=== PATIENT | female | born 1940 | race Caucasian/White ===

== ENCOUNTER 2018-03-04 10:02 | Inpatient (IN) | payer OTHER ==
--- NOTE | 2018-03-04 10:29 | PDOC ---
History of Present Illness - General Chief Complaint: Wound Stated Complaint: SENT BY PCP,WOUND INFECTION Time Seen by Provider: 03/04/18 10:20 History Source: Patient Exam Limitations: No Limitations - History of Present Illness Initial Comments: 03/04/18 11:52 Patient is a 77-year-old female past medical history of osteopenia, left total knee replacement, who presents to the emergency department today complaining of left leg pain, swelling, and rednes. Patient states that she was bit by a dog approximately 1 week ago. She was treated at a local urgent care. She was placed on Augmentin and her tetanus shot was updated. Patient states that the dog that bit her had all its vaccinations so rabies vaccinations were not started at that time. Patient states that until yesterday everything had been healing well. She states that now she's got redness, ankle swelling and streaking up and down her left leg. Denies losing or drainage from the bite site. No stitches in place. Denies fevers, chills, nausea, vomiting, diarrhea, numbness and tingling to the extremity, weakness to the extremity. Past History - Travel Traveled outside of the country in the last 30 days: No Close contact w/someone who was outside of country & ill: No - Past Medical History Allergies/Adverse Reactions: Allergies Allergy/AdvReac Type Severity Reaction Status Date / Time Sulfa (Sulfonamide Allergy Verified 03/04/18 10:12 Antibiotics) COPD: No - Suicide/Smoking/Psychosocial Hx Smoking History: Never smoked Review of Systems - Review of Systems Able to Perform ROS?: Yes Comments:: 03/04/18 13:06 CONSTITUTIONAL: Absent: fever, chills, diaphoresis, generalized weakness, malaise, loss of appetite HEENT: Absent: rhinorrhea, nasal congestion, throat pain, throat swelling, difficulty swallowing, mouth swelling, ear pain, eye pain, visual Changes CARDIOVASCULAR: Absent: chest pain, loss of consciousness, palpitations, irregular heart rate, peripheral edema RESPIRATORY: Absent: cough, shortness of breath, dyspnea with exertion, orthopnea, wheezing, stridor, hemoptysis GASTROINTESTINAL: Absent: abdominal pain, abdominal distension, nausea, vomiting, diarrhea, constipation, melena, hematochezia GENITOURINARY: Absent: dysuria, frequency, urgency, hesitancy, hematuria, flank pain, genital pain MUSCULOSKELETAL: Absent: myalgia, arthralgia, joint swelling SKIN: Present: cellulitis/skin infection to L leg. Absent: rash, itching, pallor HEMATOLOGIC/IMMUNOLOGIC: Absent: easy bleeding, easy bruising, lymphadenopathy, frequent infections ENDOCRINE: Absent: unexplained weight gain, unexplained weight loss, heat intolerance, cold intolerance NEUROLOGIC: Absent: headache, focal weakness or paresthesias, dizziness, unsteady gait, seizure, mental status changes, bladder or bowel incontinence PSYCHIATRIC: Absent: anxiety, depression, suicidal or homicidal ideation, hallucinations. Is the patient limited Bahamian proficient: No *Physical Exam - Vital Signs Last Vital Signs Temp Pulse Resp BP Pulse Ox 98 F 87 18 132/65 99 03/04/18 10:04 03/04/18 10:04 03/04/18 10:04 03/04/18 10:04 03/04/18 10:04 - Physical Exam Comments: 03/04/18 13:07 GENERAL: Well developed, well nourished. Awake and alert. No acute distress. HEENT: Normocephalic, atraumatic. PERRLA, EOMI. No conjunctival pallor. Sclera are non- icteric. Moist mucous membranes. Oropharynx is clear. NECK: Supple. Full ROM. No JVD. Carotid pulses 2+ and symmetric, without bruits. No thyromegaly. No lymphadenopathy. CARDIOVASCULAR: Regular rate and rhythm. No murmurs, rubs, or gallops. Distal pulses are 2+ and symmetric. PULMONARY: No evidence of respiratory distress. Lungs clear to auscultation bilaterally. No wheezing, rales or rhonchi. ABDOMINAL: Soft. Non-tender. Non-distended. No rebound or guarding. No organomegaly. Normoactive bowel sounds. MUSCULOSKELETAL Normal range of motion at all joints. No bony deformities or tenderness. No CVA tenderness. EXTREMITIES: No cyanosis. No clubbing. No edema. No calf tenderness. SKIN: LLE with bite barlow to the lateral calf. 2cm of surrounding erythema with blister formation towards the distal end of the bite. Streaking and swelling down to the ankle. Streaking up to the L knee without swelling to the knee joint. Warm and dry. No jaundice. NEUROLOGICAL: Alert, awake, appropriate. Cranial nerves 2-12 intact. No deficits to light touch and temperature in face, upper extremities and lower extremities. No motor deficits in the in face, upper extremities and lower extremities. Normoreflexic in the upper and lower extremities. Normal speech. Toes are down- going bilaterally. Gait is normal without ataxia. PSYCHIATRIC: Cooperative. Good eye contact. Appropriate mood and affect. ED Treatment Course - LABORATORY CBC & Chemistry Diagram: 03/04/18 12:05 03/04/18 12:05 Medical Decision Making - Medical Decision Making 03/04/18 13:25 Patient is a 77-year-old female who presents to the emergency department for cellulitis to her left lower extremity from a dog bite. Patient failed outpatient antibiotics (Augmentin). Patient now with increased erythema and warmth to the left lower extremity. No active drainage at this time. Shrieking down to the left ankle and up to the left knee. Given failure of PO antibiotics , will need to bring patient in for IV antibiotics. Dr. Garcia consult the patient at bedside and agrees with IV antibiotics, vanco and Zosyn, admission labs, lower externally ultrasound and x-ray. We'll reevaluate the patient. 03/04/18 16:45 Lab work shows no leukocytosis, zosyn started. Patient pending DVT study and x- ray. Pt. was endorsed to [facility] who accepts the admission to med/surg for IV abx. EKG: RAte 70 bpm, R superior axis deviation. Normal intervals. Sinus Rhythm. No acute ST-T wave changes. *DC/Admit/Observation/Transfer Diagnosis at time of Disposition: Allergy to sulfa drugs Cellulitis Qualifiers: Site of cellulitis: extremity Site of cellulitis of extremity: lower extremity Laterality: left Qualified Code(s): L03.116 - Cellulitis of left lower limb Dog bite of left calf Qualifiers: Encounter type: initial encounter Qualified Code(s): S81.852A - Open bite, left lower leg, initial encounter - Discharge Dispostion Condition at time of disposition: Stable Decision to Admit order: Yes - Referrals - Patient Instructions - Post Discharge Activity
[2018-03-04] MEDS ORDERED: PIPERACILLIN/TAZOB 3.375 GM 3.375 GM in DEXTROSE 5%-WATER - 50 ML IVPB ONE (11:17)
[2018-03-04] MEDS ORDERED: VANCOMYCIN 1,000 MG in DEXTROSE 5%-WATER - 250 ML IVPB ONE (11:17)
[2018-03-04] MEDS ORDERED: PANTOPRAZOLE 40 MG TABLET (FP) ONE (11:22)
[2018-03-04] MEDS ORDERED: FUROSEMIDE 40 MG TABLET (FP) ONE (11:22)
--- NOTE | 2018-03-04 11:42 | CON.ID ---
Consult Consult Specialty:: infectious disease Referred by:: ED - History of Present Illness Chief Complaint: worsening erythema and swelling LLE History of Present Illness: 77 yo female s/p bilateral TKR sevral years ago, bitten by dog last Monday through her jeans- seen at [facility] dog LAD on vaccines she received tetanus vaccine, wound was cleaned and she was started on augmentin she did well for first sevral days and then over last 2 to 3 days she had increaseing erythema extending proximallly toward the knee over last 48hours she has ankle swelling as well no fevers or chills no pets at home no water exposure - History Source History Provided By: Patient Limitations to Obtaining History: No Limitations - Past Medical History Infectious Disease: Yes: Other (cellulitis once several years ago) Endocrine: Yes: Other (osteoporosis) - Past Surgical History Past Surgical History: Yes: Joint Replacement (bilateral TKR, partial hip replacement) - Smoking History Smoking history: Never smoked - Social History Usual Living Arrangement: With Spouse ADL: Independent Home Medications - Allergies Allergies/Adverse Reactions: Allergies Allergy/AdvReac Type Severity Reaction Status Date / Time Sulfa (Sulfonamide Allergy Verified 03/04/18 10:12 Antibiotics) Review of Systems - Review of Systems Constitutional: reports: No Symptoms. denies: Chills, Fever Eyes: reports: No Symptoms HENT: reports: No Symptoms Neck: reports: No Symptoms Cardiovascular: reports: No Symptoms Respiratory: reports: No Symptoms Gastrointestinal: reports: No Symptoms Genitourinary: reports: No Symptoms Breasts: reports: No Symptoms Reported Integumentary: reports: No Symptoms Physical Exam Vital Signs: Vital Signs Temperature 98 F 03/04/18 10:04 Pulse Rate 87 03/04/18 10:04 Respiratory Rate 18 03/04/18 10:04 Blood Pressure 132/65 03/04/18 10:04 O2 Sat by Pulse Oximetry (%) 99 03/04/18 10:04 Constitutional: Yes: Well Nourished, No Distress, Calm, Thin Eyes: Yes: Conjunctiva Clear, EOM Intact HENT: Yes: Atraumatic, Normocephalic Neck: Yes: Supple, Trachea Midline Cardiovascular: Yes: Regular Rate and Rhythm Respiratory: Yes: Regular, CTA Bilaterally Gastrointestinal: Yes: Normal Bowel Sounds, Soft. No: Tenderness ...Rectal Exam: Yes: Deferred Extremities: Yes: Other (left calf with open bite wound with erythema up to knee and to ankle +foot and ankle swellling +puncture wounds, area of ?early blister) Peripheral Pulses WNL: Yes Neurological: Yes: Alert, Oriented Labs: pending Imaging - Results Chest X-ray: Pending X-ray: Pending Ultrasound: Pending Problem List - Problems (1) Cellulitis Code(s): L03.90 - CELLULITIS, UNSPECIFIED (2) Dog bite of left calf Code(s): S81.852A - OPEN BITE, LEFT LOWER LEG, INITIAL ENCOUNTER; W54.0XXA - BITTEN BY DOG, INITIAL ENCOUNTER (3) Allergy to sulfa drugs Code(s): Z88.2 - ALLERGY STATUS TO SULFONAMIDES STATUS Assessment/Plan s/p dog bite one week ago initial improvement, then swelling and erythema ?secondary cellulitis ?early abscess r/o dvt labs cultures duplex xray calf vanco/zosyn- has been on augmentin for one week may need surgery to see-
[2018-03-04 12:20] LABS: BASO % 0.9 % (0-2.0); HEMOGLOBIN 13.2 GM/dL (10.7-15.3); LYMPH % 15.9 % (8-40); MCH 32.6 pg (25.7-33.7); MCHC 33.8 g/dl (32.0-36.0); MEAN CELL VOLUME 96.2 fl (80-96); MEAN PLT VOLUME 8.4 fl (7.5-11.1); MONO % 8.8 % (3.8-10.2); NEUT % 71.4 % (42.8-82.8); PLATELET COUNT 232 K/MM3 (134-434); RBC 4.06 M/mm3 (3.60-5.2); RDW 13.3 % (11.6-15.6); WHITE BLOOD COUNT 8.3 K/mm3 (4.0-10.0)
[2018-03-04 12:33] LABS: INR 1.04 (0.82-1.09); PROTHROMBIN TIME (PATIENT) 11.8 SEC (9.7-13.0)
[2018-03-04 12:48] LABS: ALBUMIN 3.5 g/dl (3.4-5.0); ANION GAP 4 (8-16); BLOOD UREA NITROGEN 20 mg/dL (7-18); CALCIUM 8.9 mg/dL (8.5-10.1); CHLORIDE 103 mmol/L (98-107); CO2 30 mmol/L (21-32); GLUCOSE,RANDOM 92 mg/dL (74-106); SODIUM 137 mmol/L (136-145)
[2018-03-04 13:00] LABS: ALK PHOS 73 U/L (45-117); BILIRUBIN,TOTAL 0.6 mg/dL (0.2-1.0); CREATININE 0.9 mg/dL (0.55-1.02); SGPT/ALT 32 U/L (12-78); TOT PROT 7.3 g/dl (6.4-8.2)
[2018-03-04 13:14] LABS: POTASSIUM 5.5 mmol/L (3.5-5.1); SGOT/AST 59 U/L (15-37)
[2018-03-04] MEDS ORDERED: PIPERACILLIN/TAZOB 3.375 GM 3.375 GM/50 ML BAG IVPB ONE ×2 (13:49→18:42)
[2018-03-04] MEDS ORDERED: VANCOMYCIN 1 GRAM (PRE-DOCKED) 1,000 MG/250 ML BAG IVPB ONE (15:33)
[2018-03-04 16:04] LABS: URINE APPEARANCE CLEAR; URINE BILIRUBIN NEGATIVE (<2.0 mg/dL); URINE COLOR YELLOW; URINE GLUCOSE (UA) NEGATIVE (NEGATIVE); URINE KETONE NEGATIVE (NEGATIVE); URINE LEUK ESTERASE TRACE (NEGATIVE); URINE NITRITE NEGATIVE (NEGATIVE); URINE PROTEIN NEGATIVE (NEGATIVE); URINE UROBILINOGEN NEGATIVE mg/dL (0.2-1.0)
[2018-03-04 16:09] LABS: EPI CELLS RARE /HPF (FEW); URINE BACTERIA RARE /hpf (NONE SEEN)
[2018-03-04] MEDS ORDERED: SODIUM POLYSTYRENE SULFONATE 15 GM/60 ML BOTTLE PO ONE (18:00)
[2018-03-04] MEDS: PIPERACILLIN/TAZOB 3.375 GM 3.375 GM in DEXTROSE 5%-WATER - 50 ML IVPB SCH (18:07)
--- NOTE | 2018-03-04 18:13 | HP ---
CHIEF COMPLAINT: LLE pain following a dog bite PCP: Dr. Danielle Santiago HISTORY OF PRESENT ILLNESS: Pt is a 77 y/o F with PMH significant for osteoporosis who presents to ED with LLE pain following a dog bite 1 week ago. Pt states she was bitten by a domestic non-rabid appearing dog on the left calf. She went to urgent care and was given a tetanus shot and Augmentin. She's been improving on that regimen until 2 days ago at which point she experienced increased pain, swelling, and redness of the leg prompting her visit to the ED. Pt denies fever, chills, cp, sob, nausea, vomiting, diarrhea. ER course was notable for: (1) no leukocytosis. Incidental K 5.5 (2) Pt seen by ID. Doppler and XRay of LLE ordered. (3) Recent Travel: PAST MEDICAL HISTORY: PAST SURGICAL HISTORY: Social History: Smoking: remote. 1ppd from 20. quit 35 years ago Alcohol: denies Drugs: denies Family History: denies Allergies Sulfa (Sulfonamide Antibiotics) Allergy (Verified 03/04/18 10:12) HOME MEDICATIONS: REVIEW OF SYSTEMS CONSTITUTIONAL: Absent: fever, chills, diaphoresis, generalized weakness, malaise, loss of appetite, weight change HEENT: Absent: rhinorrhea, nasal congestion, throat pain, throat swelling, difficulty swallowing, mouth swelling, ear pain, eye pain, visual changes CARDIOVASCULAR: Absent: chest pain, syncope, palpitations, irregular heart rate, lightheadedness , peripheral edema RESPIRATORY: Absent: cough, shortness of breath, dyspnea with exertion, orthopnea, wheezing, stridor, hemoptysis GASTROINTESTINAL: Absent: abdominal pain, abdominal distension, nausea, vomiting, diarrhea, constipation, melena, hematochezia GENITOURINARY: Absent: dysuria, frequency, urgency, hesitancy, hematuria, flank pain, genital pain MUSCULOSKELETAL: Absent: myalgia, arthralgia, joint swelling, back pain, neck pain SKIN: red, painful, swollen LLE Absent: rash, itching, pallor HEMATOLOGIC/IMMUNOLOGIC: Absent: easy bleeding, easy bruising, lymphadenopathy, frequent infections ENDOCRINE: Absent: unexplained weight gain, unexplained weight loss, heat intolerance, cold intolerance NEUROLOGIC: Absent: headache, focal weakness or paresthesias, dizziness, unsteady gait, seizure, mental status changes, bladder or bowel incontinence PSYCHIATRIC: Absent: anxiety, depression, suicidal or homicidal ideation, hallucinations. PHYSICAL EXAMINATION Vital Signs - 24 hr 03/04/18 10:04 Temperature 98 F Pulse Rate 87 Respiratory 18 Rate Blood Pressure 132/65 O2 Sat by Pulse 99 Oximetry (%) Gen: well-appearing, NAD HEENT: NCAT, PERRL, EOMI Neck: supple no jvd Cardiac: rrr, normal s1s2, no m/r/g Pulm: cta b/l Abd: soft nontender Ext: LLE swollen, erythematous, tender. Bite barlow clearly visible on lateral mid-calf. No fluctuance appreciated. Streaking present extending toward the knee on the anterior surface. Neuro: CN2-12 intact (hearing aids. Unable to thoroughly test CN 8). Pt states she has chronic mildly diminished sensation since her knee surgeries. Sensation at baseline and intact elsewhere. Strength 5/5 throughout. Laboratory Results - last 24 hr 03/04/18 03/04/18 03/04/18 12:05 12:05 12:05 WBC 8.3 RBC 4.06 Hgb 13.2 Hct 39.0 MCV 96.2 H MCH 32.6 MCHC 33.8 RDW 13.3 Plt Count 232 MPV 8.4 Absolute Neuts (auto) 6.0 Neutrophils % 71.4 Lymphocytes % 15.9 Monocytes % 8.8 Eosinophils % 3.0 Basophils % 0.9 Nucleated RBC % 0 PT with INR 11.80 INR 1.04 Sodium 137 Potassium 5.5 H Chloride 103 Carbon Dioxide 30 Anion Gap 4 L BUN 20 H Creatinine 0.9 Creat Clearance w eGFR > 60 Random Glucose 92 Calcium 8.9 Total Bilirubin 0.6 AST 59 H ALT 32 Alkaline Phosphatase 73 Total Protein 7.3 Albumin 3.5 Urine Color Urine Appearance Urine pH Ur Specific [place] Urine Protein Urine Glucose (UA) Urine Ketones Urine Blood Urine Nitrite Urine Bilirubin Urine Urobilinogen Ur Leukocyte Esterase Urine WBC (Auto) Urine RBC (Auto) Ur Epithelial Cells Urine Bacteria 03/04/18 12:05 WBC RBC Hgb Hct MCV MCH MCHC RDW Plt Count MPV Absolute Neuts (auto) Neutrophils % Lymphocytes % Monocytes % Eosinophils % Basophils % Nucleated RBC % PT with INR INR Sodium Potassium Chloride Carbon Dioxide Anion Gap BUN Creatinine Creat Clearance w eGFR Random Glucose Calcium Total Bilirubin AST ALT Alkaline Phosphatase Total Protein Albumin Urine Color Yellow Urine Appearance Clear Urine pH 6.0 Ur [place] 1.018 Urine Protein Negative Urine Glucose (UA) Negative Urine Ketones Negative Urine Blood Negative Urine Nitrite Negative Urine Bilirubin Negative Urine Urobilinogen Negative Ur Leukocyte Esterase Trace Urine WBC (Auto) 2 Urine RBC (Auto) 4 Ur Epithelial Cells Rare Urine Bacteria Rare ASSESSMENT/PLAN: Pt is a 77 y/o F with PMH osteoporosis, b/l TKR, R partial hip, R plantar fasciitis who presented to ED after failed outpt augmentin for dog bite. Pt found to have cellulitis at this time. #Cellulitis -Eryth, tender, swollen LLE -no leukocytosis, afebrile -streaking present -ID on board -r/o abscess, DVT -Doppler -Xray -Vanc/Zosyn started (03/04/2018) by ID #[email or web address] -K 5.5 on admission -kayexelate -repeat labs #FEN -not on fluids -hyper K -reg diet #PPx -hep sub q #Dispo -Med surg for cellulitis Tommie Hackett MD, PGY-1 IM Visit type - Emergency Visit Emergency Visit: Yes ED Registration Date: 03/04/18 Care time: The patient presented to the Emergency Department on the above date and was hospitalized for further evaluation of their emergent condition. - New Patient This patient is new to me today: Yes Date on this admission: 03/04/18 - Critical Care Critical Care patient: No Hospitalist Screening - Colonoscopy Questionnaire Colonoscopy Questionnaire: Colonoscopy Questionnaire - Patient: 50 - 75 years old and never had a screening colonoscopy: Unknown History of colon or rectal polyps, or CA: Unknown History of IBD, Crohn's disease or UC: Unknown History of abdominal radiation therapy as a child: Unknown - Relative: 1 with colon or rectal CA, or polyps at age 60 or younger: Unknown Colon or rectal CA diagnosed at age 45 or younger: Unknown Multiple relatives with colon or rectal CA: Unknown - Outcome: Screening Result: Negative Screen
[2018-03-04] MEDS ORDERED: SODIUM POLYSTYRENE SULFONATE 15 GM/60 ML BOTTLE ONE (18:41)
--- NOTE | 2018-03-04 19:11 | PN ---
Teaching Attending Note Name of Resident: Tommie Hackett ATTENDING PHYSICIAN STATEMENT I saw and evaluated the patient. I reviewed the resident's note and discussed the case with the resident. I agree with the resident's findings and plan as documented. SUBJECTIVE:77yo F with PMH of osteoporosis presenting to the ER after dog bite to her L leg 1 week ago. went to urgent care and was treated with augmentin and tetnus shot. no rabies shot was given due to dog being a domesticated dog not showing any signs of rabies therefore was determined not needed. pt said she had initial improvement but then 2 days ago noted increase in swelling and erythema. with streaking up the leg. denies CP, SOB, fever, chills, N/V/C/D OBJECTIVE: Last Vital Signs Temp Pulse Resp BP Pulse Ox 98 F 87 18 132/65 99 03/04/18 10:04 03/04/18 10:04 03/04/18 10:04 03/04/18 10:04 03/04/18 10:04 General NAD Extremities LLE with circumferential swelling, eschar with some bleeding noted. area is warm and tender surrouding erythema is noted to extend medial and up to the knee. non pitting ankle swelling. pulse intact. no tenderness/warm/swelling noted of RLE. varicose veins B/L LE ASSESSMENT AND PLAN: 77yo F with PMH of osteoporosis presenting to the ER after dog bite to her L leg 1 week ago did not improve with augemtin 1. LLE cellulitis- failed outpatient po abx. started on zosyn/vanco. will check doppler to r/o DVT. XR ordered to evaluate for OM. ID consulted. pain control 2. Hyperkalemia- Kayexylate 3. osteoporosis 4. DVT ppx- hep sq
[2018-03-04] MEDS: HEPARIN NA (PORCINE) 5,000 UNITS/ML 1ML VIAL SQ SCH (23:10)
[2018-03-05] MEDS ORDERED: HEPARIN NA (PORCINE) 5,000 UNITS/ML 1ML VIAL ONE (00:14)
[2018-03-05] MEDS ORDERED: PIPERACILLIN/TAZOB 3.375 GM 3.375 GM/50 ML BAG IVPB ONE (02:18)
[2018-03-05] MEDS: PIPERACILLIN/TAZOB 3.375 GM 3.375 GM in DEXTROSE 5%-WATER - 50 ML IVPB SCH ×3 (02:34→17:02)
[2018-03-05 06:06] VITALS: BMI 21.6
[2018-03-05] MEDS: HEPARIN NA (PORCINE) 5,000 UNITS/ML 1ML VIAL SQ SCH ×3 (07:50→22:09)
[2018-03-05 08:16] LABS: BASO % 0.7 % (0-2.0); EOS % 4.5 % (0-4.5); HEMATOCRIT 36.4 % (32.4-45.2); HEMOGLOBIN 12.4 GM/dL (10.7-15.3); LYMPH % 18.3 % (8-40); MCH 32.7 pg (25.7-33.7); MEAN CELL VOLUME 96.3 fl (80-96); MEAN PLT VOLUME 8.3 fl (7.5-11.1); MONO % 9.2 % (3.8-10.2); NEUT % 67.3 % (42.8-82.8); PLATELET COUNT 219 K/MM3 (134-434); RBC 3.79 M/mm3 (3.60-5.2); RDW 13.2 % (11.6-15.6); WHITE BLOOD COUNT 7.2 K/mm3 (4.0-10.0)
[2018-03-05 08:33] LABS: CHLORIDE 105 mmol/L (98-107); SODIUM 141 mmol/L (136-145)
[2018-03-05 08:48] LABS: ALBUMIN 3.2 g/dl (3.4-5.0); ALK PHOS 59 U/L (45-117); ANION GAP 6 (8-16); BILIRUBIN,TOTAL 0.7 mg/dL (0.2-1.0); BLOOD UREA NITROGEN 13 mg/dL (7-18); CALCIUM 8.4 mg/dL (8.5-10.1); CO2 30 mmol/L (21-32); CREATININE 0.9 mg/dL (0.55-1.02); GLUCOSE,RANDOM 89 mg/dL (74-106); MAGNESIUM 2.3 mg/dL (1.8-2.4); PHOSPHOROUS 2.7 mg/dL (2.5-4.9); SGOT/AST 25 U/L (15-37); SGPT/ALT 24 U/L (12-78); TOT PROT 6.2 g/dl (6.4-8.2)
[2018-03-05] MEDS ORDERED: DEXTROSE 5%-WATER - 50 ML IVPB ONE ×2 (09:59→16:24)
[2018-03-05] MEDS ORDERED: PIPERACILLIN/TAZOBACTAM 3.375 GM VIAL IVPB ONE ×2 (09:59→16:24)
--- NOTE | 2018-03-05 10:21 | PN ---
Progress Note (short form) - Note Progress Note: anxious to go home no fevers Vital Signs Period Temp Pulse Resp BP Sys/Barragan Pulse Ox Last 24 Hr 97.7 F-98.3 F 68-77 17-20 104-136/61-82 96-98 cor-rrr lungs clear ab dosft,nt ext foot swelling resolved, less erythema surrounding the wound-still with erythema and tenderness CBC, BMP 03/05/18 07:30 03/05/18 07:30 duplex no dvt xray no bony pathology a/p s/p dog bite with worsening cellulitis despite augmentin would continue vanco/zosyn- appears to be improving add probiotics Problem List - Problems (1) Cellulitis Code(s): L03.90 - CELLULITIS, UNSPECIFIED Qualifiers: Site of cellulitis: extremity Site of cellulitis of extremity: lower extremity Laterality: left Qualified Code(s): L03.116 - Cellulitis of left lower limb (2) Dog bite of left calf Code(s): S81.852A - OPEN BITE, LEFT LOWER LEG, INITIAL ENCOUNTER; W54.0XXA - BITTEN BY DOG, INITIAL ENCOUNTER Qualifiers: Encounter type: initial encounter Qualified Code(s): S81.852A - Open bite, left lower leg, initial encounter; W54.0XXA - Bitten by dog, initial encounter (3) Allergy to sulfa drugs Code(s): Z88.2 - ALLERGY STATUS TO SULFONAMIDES STATUS
[2018-03-05] MEDS: LACTOBACILLUS ACIDOPHILUS 1 TABLET PO SCH (11:04)
[2018-03-05] MEDS: VANCOMYCIN 1,000 MG in DEXTROSE 5%-WATER - 250 ML IVPB SCH (11:27)
--- NOTE | 2018-03-05 14:14 | EKG ---
Test Reason : Blood Pressure : / mmHG Vent. Rate : 070 BPM Atrial Rate : 070 BPM P-R Int : 168 ms QRS Dur : 080 ms QT Int : 390 ms P-R-T Axes : 057 232 037 degrees QTc Int : 421 ms NORMAL SINUS RHYTHM POSSIBLE LEFT ATRIAL ENLARGEMENT RIGHT SUPERIOR AXIS DEVIATION PULMONARY DISEASE PATTERN RIGHT VENTRICULAR HYPERTROPHY SEPTAL INFARCT , AGE UNDETERMINED ABNORMAL ECG NO PREVIOUS ECGS AVAILABLE Confirmed by AIMEE WHITAKER MD ([id number]) on 03/05/2018 2:14:24 PM Referred By: Confirmed By:AIMEE WHITAKER MD
--- NOTE | 2018-03-05 15:14 | PN ---
Teaching Attending Note Name of Resident: Tommie Hackett ATTENDING PHYSICIAN STATEMENT I saw and evaluated the patient. I reviewed the resident's note and discussed the case with the resident. I agree with the resident's findings and plan as documented. SUBJECTIVE:states pain and swelling has significantly improved. requesting to go home. denies CP, SOB, fever, chills, N/V/C/D OBJECTIVE: Last Vital Signs Temp Pulse Resp BP Pulse Ox 98.3 F 68 20 104/61 96 03/05/18 08:54 03/05/18 08:54 03/05/18 08:54 03/05/18 08:54 03/05/18 05:42 General NAD Extremities LLE with eschar on lateral leg. no oozing noted. circumferential erythema +tender but no warmth. swelling significantly reduced. some erythema noted on the knee but no longer appreciating streaking from the lower leg. pulse intact. varicose veins B/L LE ASSESSMENT AND PLAN: 77yo F with PMH of osteoporosis presenting to the ER after dog bite to her L leg 1 week ago did not improve with augemtin 1. LLE cellulitis- failed outpatient po abx. on zosyn/vanco day 2. doppler neg for DVT. XR neg for OM. will check ESR/CRP. if elevated will need to consider bone scan. ID consulted. pain control. f/u Bcx 2. Hyperkalemia- resolved 3. osteoporosis 4. DVT ppx- hep sq 5. encouraged pt that she should receive a minimum of 48H IV abx given failed outpatient. agreeable to staying for further treatment
--- NOTE | 2018-03-05 19:28 | PN ---
Physical Exam: SUBJECTIVE: Patient seen and examined at bedside. No acute events. OBJECTIVE: Vital Signs Period Temp Pulse Resp BP Sys/Barragan Pulse Ox Last 24 Hr 97.7 F-98.3 F 68-77 17-20 104-136/61-82 96-98 Gen: well-appearing, NAD HEENT: NCAT, PERRL, EOMI Neck: supple no jvd Cardiac: rrr, normal s1s2, no m/r/g Pulm: cta b/l Abd: soft nontender Ext: LLE inflammation improving. Bite barlow clearly visible on lateral mid- calf. No fluctuance appreciated. Streaking present extending toward the knee on the anterior surface. Neuro: CN2-12 intact (hearing aids. Unable to thoroughly test CN 8). Pt states she has chronic mildly diminished sensation since her knee surgeries. Sensation at baseline and intact elsewhere. Strength 5/5 throughout. Laboratory Results - last 24 hr 03/05/18 03/05/18 07:30 07:30 WBC 7.2 RBC 3.79 Hgb 12.4 Hct 36.4 MCV 96.3 H MCH 32.7 MCHC 34.0 RDW 13.2 Plt Count 219 MPV 8.3 Absolute Neuts (auto) 4.9 Neutrophils % 67.3 Lymphocytes % 18.3 Monocytes % 9.2 Eosinophils % 4.5 Basophils % 0.7 Nucleated RBC % 0 Sodium 141 Potassium 4.0 Chloride 105 Carbon Dioxide 30 Anion Gap 6 L BUN 13 Creatinine 0.9 Creat Clearance w eGFR > 60 Random Glucose 89 Calcium 8.4 L Phosphorus 2.7 Magnesium 2.3 Total Bilirubin 0.7 AST 25 ALT 24 Alkaline Phosphatase 59 Total Protein 6.2 L Albumin 3.2 L Active Medications Generic Name Dose Route Start Last Admin Trade Name Freq PRN Reason Stop Dose Admin Heparin Sodium (Porcine) 5,000 unit 03/04/18 22:00 03/05/18 14:08 Heparin - SQ 5,000 unit TID CASSANDRA Administration Piperacillin Sod/Tazobactam 50 mls @ 100 mls/hr 03/04/18 18:00 03/05/18 17:02 Sod 3.375 gm/ Dextrose IVPB 100 mls/hr Q8H-IV CASSANDRA Administration Protocol Vancomycin HCl 1,000 mg/ 250 mls @ 166.667 mls/hr 03/05/18 10:00 03/05/18 11: 27 Dextrose IVPB 166.667 mls/hr Q24H CASSANDRA Administration Protocol Lactobacillus Acidophilus 1 tab 03/05/18 11:00 03/05/18 11:04 Bacid - PO 1 tab DAILY CASSANDRA Administration ASSESSMENT/PLAN: Pt is a 77 y/o F with PMH osteoporosis, b/l TKR, R partial hip, R plantar fasciitis who presented to ED after failed outpt augmentin for dog bite. Pt found to have cellulitis at this time. #Cellulitis -Eryth, tender, swollen LLE -no leukocytosis, afebrile -streaking present -ID on board -r/o abscess, DVT -Doppler -Xray -Vanc/Zosyn started (03/04/2018) by ID #[email or web address]: RESOLVED -K 5.5 on admission -kayexelate given -repeat labs unremarkable #FEN -not on fluids -lytes wnl -reg diet #PPx -hep sub q #Dispo -Med surg for cellulitis Tommie Hackett MD, PGY-1 IM Visit type - Emergency Visit Emergency Visit: No - New Patient This patient is new to me today: No - Critical Care Critical Care patient: No - Discharge Referral [facility]erred to [facility] No
[2018-03-06] MEDS ORDERED: PIPERACILLIN/TAZOBACTAM 3.375 GM VIAL IVPB ONE ×3 (01:33→17:00)
[2018-03-06] MEDS ORDERED: DEXTROSE 5%-WATER - 50 ML IVPB ONE ×3 (01:33→17:00)
[2018-03-06] MEDS: PIPERACILLIN/TAZOB 3.375 GM 3.375 GM in DEXTROSE 5%-WATER - 50 ML IVPB SCH ×3 (01:55→18:01)
[2018-03-06] MEDS: HEPARIN NA (PORCINE) 5,000 UNITS/ML 1ML VIAL SQ SCH ×3 (06:58→22:39)
--- NOTE | 2018-03-06 08:41 | PN ---
Physical Exam: SUBJECTIVE: Patient seen and examined at bedside. No complaints. Afebrile. OBJECTIVE: Vital Signs Period Temp Pulse Resp BP Sys/Barragan Pulse Ox Last 24 Hr 98.1 F-98.4 F 68-80 18-20 104-134/61-80 96-96 Gen: well-appearing, NAD HEENT: NCAT, PERRL, EOMI Neck: supple no jvd Cardiac: rrr, normal s1s2, no m/r/g Pulm: cta b/l Abd: soft nontender Ext: LLE inflammation continues to improve. Bite barlow clearly visible on lateral mid-calf. No fluctuance appreciated. Streaking present extending toward the knee on the anterior surface. Laboratory Results - last 24 hr 03/05/18 07:30 Sodium 141 Potassium 4.0 Chloride 105 Carbon Dioxide 30 Anion Gap 6 L BUN 13 Creatinine 0.9 Creat Clearance w eGFR > 60 Random Glucose 89 Calcium 8.4 L Phosphorus 2.7 Magnesium 2.3 Total Bilirubin 0.7 AST 25 ALT 24 Alkaline Phosphatase 59 Total Protein 6.2 L Albumin 3.2 L Active Medications Generic Name Dose Route Start Last Admin Trade Name Freq PRN Reason Stop Dose Admin Heparin Sodium (Porcine) 5,000 unit 03/04/18 22:00 03/06/18 06:58 Heparin - SQ 5,000 unit TID CASSANDRA Administration Piperacillin Sod/Tazobactam 50 mls @ 100 mls/hr 03/04/18 18:00 03/06/18 01:55 Sod 3.375 gm/ Dextrose IVPB 100 mls/hr Q8H-IV CASSANDRA Administration Protocol Vancomycin HCl 1,000 mg/ 250 mls @ 166.667 mls/hr 03/05/18 10:00 03/05/18 11: 27 Dextrose IVPB 166.667 mls/hr Q24H CASSANDRA Administration Protocol Lactobacillus Acidophilus 1 tab 03/05/18 11:00 03/05/18 11:04 Bacid - PO 1 tab DAILY CASSANDRA Administration ASSESSMENT/PLAN: Pt is a 77 y/o F with PMH osteoporosis, b/l TKR, R partial hip, R plantar fasciitis who presented to ED after failed outpt augmentin for dog bite. Pt found to have cellulitis at this time. #Cellulitis -Eryth, tender, swollen LLE -no leukocytosis, afebrile -streaking present in ed -ID on board -r/o abscess, DVT -Doppler neg for dvt -Xray ? soft tissue lesion -Vanc/Zosyn started (03/04/2018) by ID -CRP high -Improving daily #hyperK: RESOLVED -K 5.5 on admission -kayexelate given -repeat labs unremarkable #FEN -not on fluids -lytes wnl -reg diet #PPx -hep sub q #Dispo -Med surg for cellulitis Tommie Hackett MD, PGY-1 IM Visit type - Emergency Visit Emergency Visit: No - New Patient This patient is new to me today: No - Critical Care Critical Care patient: No - Discharge Referral Referred to [facility] Med P.C.: No
[2018-03-06] MEDS ORDERED: PT OWN MED DRAWER 7, Y5N ONE (09:24)
[2018-03-06] MEDS: LACTOBACILLUS ACIDOPHILUS 1 TABLET PO SCH (09:38)
[2018-03-06] MEDS: VANCOMYCIN 1,000 MG in DEXTROSE 5%-WATER - 250 ML IVPB SCH (10:10)
--- NOTE | 2018-03-06 15:09 | PN ---
Teaching Attending Note Name of Resident: Tommie Hackett ATTENDING PHYSICIAN STATEMENT I saw and evaluated the patient. I reviewed the resident's note and discussed the case with the resident. I agree with the resident's findings and plan as documented with exceptions below. SUBJECTIVE: Patient seen and examined. still leg redness/swelling overall unchanged, no new fevers/chills or concerns. OBJECTIVE: Vital Signs Period Temp Pulse Resp BP Sys/Barragan Pulse Ox Last 24 Hr 98.1 F-98.4 F 72-80 17-20 116-134/65-80 96 Intake & Output 03/03/18 03/04/18 03/05/18 03/06/18 23:59 23:59 23:59 23:59 Intake Total 680 50 Balance 680 50 Weight 125 lb 126 lb General: sitting in bed in no acute distress Extremities: LLE bite barlow with eschar, surrounding erythema/induration/ tenderness/mild warmth in an oval 3 by 2 cm area lateral mid left leg with minimal streaking around, no area of fluctuation appreciated Active Medications Generic Name Dose Route Start Last Admin Trade Name Tavoq PRN Reason Stop Dose Admin Heparin Sodium (Porcine) 5,000 unit 03/04/18 22:00 03/06/18 06:58 Heparin - SQ 5,000 unit TID CASSANDRA Administration Piperacillin Sod/Tazobactam 50 mls @ 100 mls/hr 03/04/18 18:00 03/06/18 09:38 Sod 3.375 gm/ Dextrose IVPB 100 mls/hr Q8H-IV CASSANDRA Administration Protocol Vancomycin HCl 1,000 mg/ 250 mls @ 166.667 mls/hr 03/05/18 10:00 03/06/18 10: 10 Dextrose IVPB 166.667 mls/hr Q24H CASSANDRA Administration Protocol Lactobacillus Acidophilus 1 tab 03/05/18 11:00 03/06/18 09:38 Bacid - PO 1 tab DAILY CASSANDRA Administration Laboratory Results - last 24 hr 03/06/18 03/06/18 07:45 07:45 ESR 17 C-Reactive Protein 0.8 H Microbiology 03/04/18 10:44 Blood - Peripheral Venous Blood Culture - Preliminary NO GROWTH OBTAINED AFTER 48 HOURS, INCUBATION TO CONTINUE FOR 3 DAYS. 03/04/18 10:44 Blood - Peripheral Venous Blood Culture - Preliminary NO GROWTH OBTAINED AFTER 48 HOURS, INCUBATION TO CONTINUE FOR 3 DAYS. 03/04/18 12:05 Urine - Urine Clean Catch Urine Culture - Final NO GROWTH OBTAINED ASSESSMENT AND PLAN: 77yo F with PMH of osteoporosis presenting to the ER after dog bite to her L leg 1 week ago did not improve with augemtin -LLE dogbite cellulitis -Hyperkalemia, resolved -Osteoporosis Plan: Zosyn/vancomycin day 3, monitor vanco levels. xray/duplex noted. ESR/CRP noted. warm packs, surgery input. Overall unchanged per patient, ?immature abscess. Follow up blood cultures. DVTPPX heparin. Dispo planing pending clinical improvement. Plan discussed with patient in detail, all questions answered.
--- NOTE | 2018-03-06 15:32 | PN ---
Progress Note (short form) - Note Progress Note: anxious to go home no fevers Vital Signs Period Temp Pulse Resp BP Sys/Barragan Pulse Ox Last 24 Hr 98.1 F-98.4 F 72-80 17-20 116-134/65-80 96 cor-rrr lungs clear abd soft,nt ext less erythema surrounding the wound, no fluctuance less tender foot edema has resolved CBC, BMP 03/05/18 07:30 03/05/18 07:30 Laboratory Tests 03/06/18 03/06/18 07:45 07:45 ESR 17 C-Reactive Protein 0.8 H duplex no dvt xray no bony pathology a/p s/p dog bite with worsening cellulitis despite augmentin would continue vanco/zosyn- appears to be improving add probiotics surgery to see Problem List - Problems (1) Cellulitis Code(s): L03.90 - CELLULITIS, UNSPECIFIED Qualifiers: Site of cellulitis: extremity Site of cellulitis of extremity: lower extremity Laterality: left Qualified Code(s): L03.116 - Cellulitis of left lower limb (2) Dog bite of left calf Code(s): S81.852A - OPEN BITE, LEFT LOWER LEG, INITIAL ENCOUNTER; W54.0XXA - BITTEN BY DOG, INITIAL ENCOUNTER Qualifiers: Encounter type: initial encounter Qualified Code(s): S81.852A - Open bite, left lower leg, initial encounter; W54.0XXA - Bitten by dog, initial encounter (3) Allergy to sulfa drugs Code(s): Z88.2 - ALLERGY STATUS TO SULFONAMIDES STATUS
[2018-03-07] MEDS ORDERED: DEXTROSE 5%-WATER - 50 ML IVPB ONE ×3 (01:38→17:19)
[2018-03-07] MEDS ORDERED: PIPERACILLIN/TAZOBACTAM 3.375 GM VIAL IVPB ONE ×3 (01:38→17:18)
[2018-03-07] MEDS: PIPERACILLIN/TAZOB 3.375 GM 3.375 GM in DEXTROSE 5%-WATER - 50 ML IVPB SCH ×3 (01:55→17:28)
[2018-03-07] MEDS: HEPARIN NA (PORCINE) 5,000 UNITS/ML 1ML VIAL SQ SCH ×3 (05:36→21:10)
--- NOTE | 2018-03-07 07:24 | CONSULT ---
- Consultation REQUESTING PROVIDER: Cherelle ROB CONSULT REQUEST: We have been asked to surgically evaluate this patient for e/m of a dog bite to the LLE PCP:Julieta Villarreal MD HISTORY OF PRESENT ILLNESS: CTSP s/p dog bite LLE 12-13 days ago; was initially seen at [facility] and then f/u w/her PCP and a surgeon; when seen in f/u she was advised she needed IVAB's and was admitted here; she c/o pain and swelling at the site of the dog bite; NOC. PMHx: none PSHx: none Allergies Allergy/AdvReac Type Severity Reaction Status Date / Time Sulfa (Sulfonamide Allergy Verified 03/04/18 10:12 Antibiotics) PHYSICAL EXAM: GENERAL: Awake, alert, and fully oriented, in no acute distress. HEAD: Normal with no signs of trauma. MUSCULOSKELETAL: Normal ROM at all joints. No bony deformities or tenderness. No CVA tenderness. UPPER EXTREMITIES: 2+ pulses, warm, well-perfused. No cyanosis. Cap refill <2 seconds. No peripheral edema. LOWER EXTREMITIES: 2+ pulses, warm, well-perfused. No calf tenderness. No peripheral edema; STS left calf at site of injuru; erythema and eschar are present w/mild ttp; superficial varicosities are noted in both LE's; o/w negative.. NEUROLOGICAL: Normal speech, gait not observed. PSYCH: Cooperative. Good eye contact. Appropriate mood and affect. SKIN: Warm, dry, normal turgor, no rashes or lesions noted. Vital Signs Temperature 99.0 F 03/07/18 06:07 Pulse Rate 64 03/07/18 06:07 Respiratory Rate 20 03/07/18 06:07 Blood Pressure 118/71 03/07/18 06:07 O2 Sat by Pulse Oximetry (%) 98 03/06/18 21:22 Lab Results WBC 7.2 K/mm3 (4.0-10.0) 03/05/18 07:30 RBC 3.79 M/mm3 (3.60-5.2) 03/05/18 07:30 Hgb 12.4 GM/dL (10.7-15.3) 03/05/18 07:30 Hct 36.4 % (32.4-45.2) 03/05/18 07:30 MCV 96.3 fl (80-96) H 03/05/18 07:30 MCHC 34.0 g/dl (32.0-36.0) 03/05/18 07:30 RDW 13.2 % (11.6-15.6) 03/05/18 07:30 Plt Count 219 K/MM3 (134-434) 03/05/18 07:30 Sodium 141 mmol/L (136-145) 03/05/18 07:30 Potassium 4.0 mmol/L (3.5-5.1) 03/05/18 07:30 Chloride 105 mmol/L (98-107) 03/05/18 07:30 Carbon Dioxide 30 mmol/L (21-32) 03/05/18 07:30 Anion Gap 6 (8-16) L 03/05/18 07:30 BUN 13 mg/dL (7-18) 03/05/18 07:30 Creatinine 0.9 mg/dL (0.55-1.02) 03/05/18 07:30 Random Glucose 89 mg/dL (74-106) 03/05/18 07:30 Calcium 8.4 mg/dL (8.5-10.1) L 03/05/18 07:30 INR 1.04 (0.82-1.09) 03/04/18 12:05 IMP:dog bite w/superficial infection and failed outpatient tx. PLAN: Continue present tx.; re-evaluation and possible OR for deberidement; r/b/ t/a's and indications for same d/w the patient. Tre Aponte MD FACS
--- NOTE | 2018-03-07 10:48 | PN ---
Progress Note, Physician Chief Complaint: ID Asked for direction regarding need for debridement of wound today - Current Medication List Current Medications: Active Medications Heparin Sodium (Porcine) (Heparin -) 5,000 unit SQ TID CASSANDRA Last Admin: 03/07/18 05:36 Dose: 5,000 unit Piperacillin Sod/Tazobactam (Sod 3.375 gm/ Dextrose) 50 mls @ 100 mls/hr IVPB Q8H-IV CASSANDRA; Protocol Last Admin: 03/07/18 01:55 Dose: 100 mls/hr Vancomycin HCl 1,000 mg/ (Dextrose) 250 mls @ 166.667 mls/hr IVPB Q24H CASSANDRA; Protocol Last Admin: 03/06/18 10:10 Dose: 166.667 mls/hr Lactobacillus Acidophilus (Bacid -) 1 tab PO DAILY CASSANDRA Last Admin: 03/06/18 09:38 Dose: 1 tab - Objective Vital Signs: Vital Signs Temperature 99.0 F 03/07/18 06:07 Pulse Rate 64 03/07/18 06:07 Respiratory Rate 20 03/07/18 06:07 Blood Pressure 118/71 03/07/18 06:07 O2 Sat by Pulse Oximetry (%) 98 03/06/18 21:22 Constitutional: Yes: No Distress Neck: Yes: WNL, Supple Cardiovascular: Yes: S1, S2 Respiratory: Yes: WNL, Regular, CTA Bilaterally Extremities: Yes: Other (Extensive erythema extending to below the knee Wound are laterally indurated tender with area of necrosis) Labs: CBC, BMP 03/05/18 07:30 03/05/18 07:30 INR, PTT INR 1.04 (0.82-1.09) 03/04/18 12:05 Assessment/Plan Microbiology 03/04/18 12:05 Urine - Urine Clean Catch Urine Culture - Final NO GROWTH OBTAINED 03/04/18 10:44 Blood - Peripheral Venous Blood Culture - Preliminary NO GROWTH OBTAINED AFTER 48 HOURS, INCUBATION TO CONTINUE FOR 3 DAYS. 03/04/18 10:44 Blood - Peripheral Venous Blood Culture - Preliminary NO GROWTH OBTAINED AFTER 48 HOURS, INCUBATION TO CONTINUE FOR 3 DAYS. Laboratory Tests 03/04/18 03/05/18 03/05/18 12:05 07:30 07:30 WBC 7.2 Hgb 12.4 Hct 36.4 ESR BUN 13 Creatinine 0.9 C-Reactive Protein Urine WBC (Auto) 2 Urine RBC (Auto) 4 03/06/18 03/06/18 07:45 07:45 WBC Hgb Hct ESR 17 BUN Creatinine C-Reactive Protein 0.8 H Urine WBC (Auto) Urine RBC (Auto) Assessment Extensive necrotic wounds with significant erythema extending below the knee and prosthesis Cellulitis Continue antibiotic as ordered Wound culture at surgery Nader ROB Plan Agree with Dr Harris plan for OR debridment today
[2018-03-07] MEDS: VANCOMYCIN 1,000 MG in DEXTROSE 5%-WATER - 250 ML IVPB SCH (11:26)
[2018-03-07] MEDS: LACTOBACILLUS ACIDOPHILUS 1 TABLET PO SCH (11:27)
[2018-03-07] MEDS ORDERED: MIDAZOLAM HCL 2 MG/2 ML SINGLE DOSE VIAL ONE (12:45)
[2018-03-07] MEDS ORDERED: BUPIVACAINE 0.75% IN DEXTROSE/PF 2ML AMPULE NR ONE (12:46)
[2018-03-07] MEDS ORDERED: PROPOFOL 20 ML ONE (13:00)
[2018-03-07] MEDS ORDERED: PROMETHAZINE HCL 25 MG/1 ML VIAL IVPUSH PRN ×2 (13:51→14:18)
[2018-03-07] MEDS ORDERED: ONDANSETRON 4 MG/2 ML VIAL IVPUSH PRN ×2 (13:51→14:18)
[2018-03-07] MEDS ORDERED: oxyCODONE HCL 5 MG TABLET PO PRN ×4 (13:51→15:25)
[2018-03-07] MEDS ORDERED: LACTATED RINGERS SOLUTION 1,000 ML IV SCH (14:00)
--- NOTE | 2018-03-07 14:01 | SURG ---
Surgery Supervisor Cloth Winding Note Supervisor Cloth Winding: Erinn Barron PA-C Date of Service: 03/07/18 Diagnosis: Left Leg infected dog bite Procedure: Excisional Debridement of left lower extremity I was present for the entirety of the operative procedure. For further detail, please refer to operative report. Visit type - Case Type Case Type: Scheduled - Emergency Emergency Visit: Yes ED Registration Date: 03/04/18 Care time: The patient presented to the Emergency Department on the above date and was hospitalized for further evaluation of their emergent condition. - New patient This patient is new to me today: Yes Date on this admission: 03/07/18
--- NOTE | 2018-03-07 14:02 | OP ---
Operative Note - Note: Operative Date: 03/07/18 Pre-Operative Diagnosis: infected dog bite LLE Operation: excisional debridement Findings: necrotic eschar and subcutaneous fat and superficial fascia; intact muscle Post-Operative Diagnosis: Same as Pre-op Surgeon: Tre Aponte Devulcanizer Loader: Erinn Barron Anesthesiologist/AGRICULTURE RESEARCH DIRECTOR: Amando Granda Anesthesia: General Specimens Removed: necrotic skin l;fat and eschar and superficial fascia Estimated Blood Loss (mls): 10
--- NOTE | 2018-03-07 14:46 | PN ---
Physical Exam: SUBJECTIVE: Patient seen and examined at bedside. No complaints. Afebrile. OBJECTIVE: Vital Signs Period Temp Pulse Resp BP Sys/Barragan Pulse Ox Last 24 Hr 98.5 F-99.0 F 64-70 17-20 118-130/68-71 98 Gen: well-appearing, NAD HEENT: NCAT, PERRL, EOMI Neck: supple no jvd Cardiac: rrr, normal s1s2, no m/r/g Pulm: cta b/l Abd: soft nontender Ext: LLE inflammation continues to improve. Bite barlow clearly visible on lateral mid-calf. No fluctuance appreciated. Streaking present extending toward the knee on the anterior surface. Laboratory Results - last 24 hr 03/07/18 09:20 Vancomycin Pre-Dose 8.05 Active Medications Generic Name Dose Route Start Last Admin Trade Name Freq PRN Reason Stop Dose Admin Fentanyl 25 mcg 03/07/18 14:18 Sublimaze Injection - IVPUSH [id number] PRN PAIN-PACU ORDER X 4 DOSES ONLY Heparin Sodium (Porcine) 5,000 unit 03/07/18 22:00 Heparin - SQ TID CASSANDRA Lactated Ringer's 1,000 mls @ 75 mls/hr 03/07/18 14:18 Lactated Ringers Solution IV ASDIR CASSANDRA Vancomycin HCl 1 gm in 200 mls @ 133.333 mls/hr 03/08/18 10:00 Vancomycin 1 Gm Premix - IVPB Q24H [facility] Protocol Piperacillin Sod/Tazobactam 50 mls @ 100 mls/hr 03/07/18 18:00 Sod 3.375 gm/ Dextrose IVPB Q8H-IV [facility] Protocol Lactobacillus Acidophilus 1 tab 03/08/18 10:00 Bacid - PO DAILY [facility] Ondansetron HCl 4 mg 03/07/18 14:18 Zofran Injection IVPUSH Q6H PRN NAUSEA AND/OR VOMITING Oxycodone HCl 10 mg 03/07/18 13:58 Roxicodone - PO Q4H PRN PAIN LEVEL 6-10 Oxycodone HCl 5 mg 03/07/18 14:18 Roxicodone - PO 03/08/18 13:50 Q4H PRN PAIN LEVEL 1-5 Promethazine HCl 12.5 mg 03/07/18 14:18 Phenergan Injection - IVPUSH Q6H PRN NAUSEA-FOR RESCUE AFTER 15 MIN ASSESSMENT/PLAN: Pt is a 77 y/o F with PMH osteoporosis, b/l TKR, R partial hip, R plantar fasciitis who presented to ED after failed outpt augmentin for dog bite. Pt found to have cellulitis at this time. #Cellulitis -Eryth, tender, swollen LLE -no leukocytosis, afebrile -streaking present in ed -ID on board -r/o abscess, DVT -Doppler neg for dvt -Xray ? soft tissue lesion -Vanc/Zosyn started (03/04/2018) by ID -CRP high -Improving daily -Went for debriedment today #hyperK: RESOLVED -K 5.5 on admission -kayexelate given -repeat labs unremarkable #FEN -not on fluids -lytes wnl -reg diet #PPx -hep sub q #Dispo -Med surg for cellulitis Tommie Hackett MD, PGY-1 IM Visit type - Emergency Visit Emergency Visit: No - New Patient This patient is new to me today: No - Critical Care Critical Care patient: No - Discharge Referral Referred to [facility] Med P.C.: No
--- NOTE | 2018-03-07 15:15 | PN ---
Teaching Attending Note Name of Resident: Tommie Hackett ATTENDING PHYSICIAN STATEMENT I saw and evaluated the patient. I reviewed the resident's note and discussed the case with the resident. I agree with the resident's findings and plan as documented with exceptions below. SUBJECTIVE: Patient seen and examined. going to OR, overall feels unchanged. OBJECTIVE: Vital Signs Period Temp Pulse Resp BP Sys/Barragan Pulse Ox Last 24 Hr 97.8 F-99.0 F 64-70 10-20 118-147/68-74 98-99 Intake & Output 03/04/18 03/05/18 03/06/18 03/07/18 23:59 23:59 23:59 23:59 Intake Total 680 940 500 Balance 680 940 500 Weight 125 lb 126 lb General: lying in stretcher in no acute distress Extremities: LLE dressing, going to OR, further exam deferred currently Active Medications Fentanyl (Sublimaze Injection -) 25 mcg IVPUSH [id number] PRN PRN Reason: PAIN-PACU ORDER X 4 DOSES ONLY Heparin Sodium (Porcine) (Heparin -) 5,000 unit SQ TID CASSANDRA Lactated Ringer's (Lactated Ringers Solution) 1,000 mls @ 75 mls/hr IV ASDIR CASSANDRA Vancomycin HCl (Vancomycin 1 Gm Premix -) 1 gm in 200 mls @ 133.333 mls/hr IVPB Q24H CASSANDRA; Protocol Piperacillin Sod/Tazobactam (Sod 3.375 gm/ Dextrose) 50 mls @ 100 mls/hr IVPB Q8H-IV CASSANDRA; Protocol Lactobacillus Acidophilus (Bacid -) 1 tab PO DAILY CASSANDRA Ondansetron HCl (Zofran Injection) 4 mg IVPUSH Q6H PRN PRN Reason: NAUSEA AND/OR VOMITING Oxycodone HCl (Roxicodone -) 10 mg PO Q4H PRN PRN Reason: PAIN LEVEL 6-10 Oxycodone HCl (Roxicodone -) 5 mg PO Q4H PRN PRN Reason: PAIN LEVEL 1-5 Stop: 03/08/18 13:50 Promethazine HCl (Phenergan Injection -) 12.5 mg IVPUSH Q6H PRN PRN Reason: NAUSEA-FOR RESCUE AFTER 15 MIN Laboratory Results - last 24 hr 03/07/18 09:20 Vancomycin Pre-Dose 8.05 Microbiology 03/04/18 10:44 Blood - Peripheral Venous Blood Culture - Preliminary NO GROWTH OBTAINED AFTER 72 HOURS, INCUBATION TO CONTINUE FOR 2 DAYS. 03/04/18 10:44 Blood - Peripheral Venous Blood Culture - Preliminary NO GROWTH OBTAINED AFTER 72 HOURS, INCUBATION TO CONTINUE FOR 2 DAYS. 03/04/18 12:05 Urine - Urine Clean Catch Urine Culture - Final NO GROWTH OBTAINED ASSESSMENT AND PLAN: 77yo F with PMH of osteoporosis presenting to the ER after dog bite to her L leg 1 week ago did not improve with augemtin -LLE dogbite cellulitis -Hyperkalemia, resolved -Osteoporosis Plan: Zosyn/vancomycin day 4, surgery input noted. S/p OR debridement. Blood cultures neg so far. ESR/CRP non concerning. Pain control with tylenol and low dose oxycodone short term. DVTPPX heparin. Dispo planing in 24 hours if no concerns. Plan discussed with patient in detail, all questions answered.
[2018-03-07] MEDS: LACTATED RINGERS SOLUTION 1,000 ML IV SCH (18:14)
[2018-03-07] MEDS: ACETAMINOPHEN 325 MG TABLET (FP) PO PRN (21:08)
[2018-03-08] MEDS ORDERED: DEXTROSE 5%-WATER - 50 ML IVPB ONE ×2 (01:55→10:05)
[2018-03-08] MEDS ORDERED: PIPERACILLIN/TAZOBACTAM 3.375 GM VIAL IVPB ONE ×2 (01:55→10:05)
[2018-03-08] MEDS: PIPERACILLIN/TAZOB 3.375 GM 3.375 GM in DEXTROSE 5%-WATER - 50 ML IVPB SCH ×2 (02:04→10:10)
[2018-03-08] MEDS: ACETAMINOPHEN 325 MG TABLET (FP) PO PRN ×2 (03:10→10:07)
[2018-03-08] MEDS: HEPARIN NA (PORCINE) 5,000 UNITS/ML 1ML VIAL SQ SCH ×2 (06:14→13:40)
[2018-03-08 07:14] LABS: BASO % 0.7 % (0-2.0); EOS % 1.8 % (0-4.5); HEMATOCRIT 36.6 % (32.4-45.2); HEMOGLOBIN 12.4 GM/dL (10.7-15.3); LYMPH % 20.4 % (8-40); MCH 32.6 pg (25.7-33.7); MCHC 33.8 g/dl (32.0-36.0); MEAN CELL VOLUME 96.3 fl (80-96); MEAN PLT VOLUME 7.9 fl (7.5-11.1); MONO % 7.8 % (3.8-10.2); NEUT % 69.3 % (42.8-82.8); PLATELET COUNT 234 K/MM3 (134-434); WHITE BLOOD COUNT 8.6 K/mm3 (4.0-10.0)
--- NOTE | 2018-03-08 07:25 | PN ---
Physical Exam: SUBJECTIVE: Patient seen and examined at bedside. No complaints. Pt has not been requiring Oxy for pain control. OBJECTIVE: Vital Signs Period Temp Pulse Resp BP Sys/Barragan Pulse Ox Last 24 Hr 97.3 F-98.6 F 54-69 10-23 108-147/42-80 97-100 Gen: well-appearing, NAD HEENT: NCAT, PERRL, EOMI Neck: supple no jvd Cardiac: rrr, normal s1s2, no m/r/g Pulm: cta b/l Abd: soft nontender Ext: LLE inflammation continues to improve. LLE with wound dressing cdi Laboratory Results - last 24 hr 03/07/18 09:20 Vancomycin Pre-Dose 8.05 Active Medications Generic Name Dose Route Start Last Admin Trade Name Freq PRN Reason Stop Dose Admin Acetaminophen 650 mg 03/07/18 15:25 03/08/18 03:10 Tylenol - PO 650 mg Q6H PRN Administration PAIN LEVEL 1-5 Fentanyl 25 mcg 03/07/18 14:18 Sublimaze Injection - IVPUSH [id number] PRN PAIN-PACU ORDER X 4 DOSES ONLY Heparin Sodium (Porcine) 5,000 unit 03/07/18 22:00 03/08/18 06:14 Heparin - SQ 5,000 unit TID CASSANDRA Administration Lactated Ringer's 1,000 mls @ 75 mls/hr 03/07/18 14:18 03/07/18 18:14 Lactated Ringers Solution IV 75 mls/hr ASDIR CASSANDRA Administration Vancomycin HCl 1 gm in 200 mls @ 133.333 mls/hr 03/08/18 10:00 Vancomycin 1 Gm Premix - IVPB Q24H CASSANDRA Protocol Piperacillin Sod/Tazobactam 50 mls @ 100 mls/hr 03/07/18 18:00 03/08/18 02:04 Sod 3.375 gm/ Dextrose IVPB 100 mls/hr Q8H-IV CASSANDRA Administration Protocol Lactobacillus Acidophilus 1 tab 03/08/18 10:00 Bacid - PO DAILY CASSANDRA Ondansetron HCl 4 mg 03/07/18 14:18 Zofran Injection IVPUSH Q6H PRN NAUSEA AND/OR VOMITING Oxycodone HCl 2.5 mg 03/07/18 15:25 Roxicodone - PO 06/21/18 13:50 Q6H PRN PAIN LEVEL 6-10 Promethazine HCl 12.5 mg 03/07/18 14:18 Phenergan Injection - IVPUSH Q6H PRN NAUSEA-FOR RESCUE AFTER 15 MIN ASSESSMENT/PLAN:
--- NOTE | 2018-03-08 08:37 | PN ---
Teaching Attending Note Name of Resident: Tommie Hackett ATTENDING PHYSICIAN STATEMENT I saw and evaluated the patient. I reviewed the resident's note and discussed the case with the resident. I agree with the resident's findings and plan as documented with exceptions below. SUBJECTIVE: Patient seen and examined. Feels better, no fevers/chills or new pain. OBJECTIVE: Vital Signs Period Temp Pulse Resp BP Sys/Barragan Pulse Ox Last 24 Hr 97.3 F-98.6 F 54-69 10-23 108-147/42-80 97-100 Intake & Output 03/05/18 03/06/18 03/07/18 03/08/18 23:59 23:59 23:59 23:59 Intake Total 279 603 3892 1250 Output Total 0 Balance 320 096 7002 1250 Weight 126 lb General: ambulating in room Extremities: LLE wound dressing, just done by Dr. Aponte, further exam deferred. Active Medications Acetaminophen (Tylenol -) 650 mg PO Q6H PRN PRN Reason: PAIN LEVEL 1-5 Last Admin: 03/08/18 03:10 Dose: 650 mg Fentanyl (Sublimaze Injection -) 25 mcg IVPUSH [id number] PRN PRN Reason: PAIN-PACU ORDER X 4 DOSES ONLY Heparin Sodium (Porcine) (Heparin -) 5,000 unit SQ TID CASSANDRA Last Admin: 03/08/18 06:14 Dose: 5,000 unit Lactated Ringer's (Lactated Ringers Solution) 1,000 mls @ 75 mls/hr IV ASDIR [facility] Last Admin: 03/07/18 18:14 Dose: 75 mls/hr Vancomycin HCl (Vancomycin 1 Gm Premix -) 1 gm in 200 mls @ 133.333 mls/hr IVPB Q24H [facility]; Protocol Piperacillin Sod/Tazobactam (Sod 3.375 gm/ Dextrose) 50 mls @ 100 mls/hr IVPB Q8H-IV CASSANDRA; Protocol Last Admin: 03/08/18 02:04 Dose: 100 mls/hr Lactobacillus Acidophilus (Bacid -) 1 tab PO DAILY CASSANDRA Ondansetron HCl (Zofran Injection) 4 mg IVPUSH Q6H PRN PRN Reason: NAUSEA AND/OR VOMITING Oxycodone HCl (Roxicodone -) 2.5 mg PO Q6H PRN PRN Reason: PAIN LEVEL 6-10 Stop: 03/08/18 13:50 Promethazine HCl (Phenergan Injection -) 12.5 mg IVPUSH Q6H PRN PRN Reason: NAUSEA-FOR RESCUE AFTER 15 MIN Laboratory Results - last 24 hr 03/07/18 03/08/18 09:20 06:00 WBC 8.6 RBC 3.80 Hgb 12.4 Hct 36.6 MCV 96.3 H MCH 32.6 MCHC 33.8 RDW 13.0 Plt Count 234 MPV 7.9 Absolute Neuts (auto) 6.0 Neutrophils % 69.3 Lymphocytes % 20.4 Monocytes % 7.8 Eosinophils % 1.8 Basophils % 0.7 Nucleated RBC % 0 Vancomycin Pre-Dose 8.05 Microbiology 03/04/18 10:44 Blood - Peripheral Venous Blood Culture - Preliminary NO GROWTH OBTAINED AFTER 72 HOURS, INCUBATION TO CONTINUE FOR 2 DAYS. 03/04/18 10:44 Blood - Peripheral Venous Blood Culture - Preliminary NO GROWTH OBTAINED AFTER 72 HOURS, INCUBATION TO CONTINUE FOR 2 DAYS. 03/04/18 12:05 Urine - Urine Clean Catch Urine Culture - Final NO GROWTH OBTAINED ASSESSMENT AND PLAN: 77yo F with PMH of osteoporosis presenting to the ER after dog bite to her L leg 1 week ago did not improve with augemtin -LLE dogbite cellulitis with eschar s/p OR debridement 03/07 -Hyperkalemia, resolved -Osteoporosis Plan: Discussed with Dr. Aponte, wound care and outpatient follow up. Discussed with ID, Augmentin x 1 week. VNS for wound care. D/c home today with outpatient Surgery/ID follow up. Plan discussed with patient in detail, all questions answered.
[2018-03-08 08:50] LABS: CHLORIDE 106 mmol/L (98-107); POTASSIUM 4.2 mmol/L (3.5-5.1); SODIUM 141 mmol/L (136-145)
--- NOTE | 2018-03-08 09:16 | PN ---
Progress Note (short form) - Note Progress Note: ID Debridement of necrotic wound yesterday Joon Ramon Selected Entries 03/08/18 05:56 Temperature 97.3 F L Pulse Rate 63 Respiratory 18 Rate Blood Pressure 116/61 Post op dressing Laboratory Tests 03/05/18 03/08/18 07:30 06:00 WBC 8.6 Hgb 12.4 BUN 13 Creatinine 0.9 Assessment Infected dog bite with skin necrosis Plan Continue oral antibiotic Augmentin 875mb bid for 5-7 days Wound care per Dr Aponte VNS for dressing change
--- NOTE | 2018-03-08 09:35 | PN ---
Progress Note (short form) - Note Progress Note: Attending Surgeon POD#1 No c/o VSS AF wound open and clean and w/o discharge; edema and cellulitis decreased; wound is 5 x 4 x 1 cm. IMP: doing well PLAN: January f/u as an outpatient; should have VNS w/ normal saline wet to dry dressing changes. Tre Aponte MD FACS
[2018-03-08 09:36] LABS: ALBUMIN 3.1 g/dl (3.4-5.0); ALK PHOS 53 U/L (45-117); ANION GAP 12 (8-16); BILIRUBIN,TOTAL 0.6 mg/dL (0.2-1.0); BLOOD UREA NITROGEN 14 mg/dL (7-18); CALCIUM 8.1 mg/dL (8.5-10.1); CO2 23 mmol/L (21-32); CREATININE 0.9 mg/dL (0.55-1.02); GLUCOSE,RANDOM 76 mg/dL (74-106); SGOT/AST 28 U/L (15-37); SGPT/ALT 24 U/L (12-78)
[2018-03-08] MEDS ORDERED: VANCOMYCIN 1 GM PREMIX - 1 GM/200 ML BAG IVPB SCH (10:00)
[2018-03-08] MEDS ORDERED: LACTOBACILLUS ACIDOPHILUS 1 TABLET PO SCH (10:00)
--- NOTE | 2018-03-08 10:06 | OP ---
DATE OF OPERATION: 03/07/2018 PREOPERATIVE DIAGNOSIS: Infected dog bite, left lower extremity. POSTOPERATIVE DIAGNOSIS: Infected dog bite, left lower extremity. PROCEDURE: Excisional debridement of infected dog bite, left lower extremity. SURGEON: Tre Aponte MD BUSINESS INTELLIGENCE ADMINISTRATOR: Erinn Barron PA-C ANESTHESIA: General. OPERATIVE FINDINGS: There was necrotic skin, subcutaneous fat, and superficial fascia. There was overlying eschar, and the rest of the findings were unremarkable. The size of the wound debrided was 5 cm x 4 cm x 1 cm. DESCRIPTION OF PROCEDURE: The patient was placed on the operating table in supine position, and after the induction of general anesthesia, the patient's left lower extremity was prepped with ChloraPrep and draped in sterile fashion. A timeout was taken, and then, excisional debridement with a scalpel was carried out, removing the eschar and all underlying non-viable subcutaneous fat, necrotic skin, and superficial fascia down to the muscle which was viable and bled actively. Debrided tissue was sent for pathological examination, and then, the wound irrigated with a normal saline and peroxide in a 50/50 concentration. Hemostasis was secured with electrocautery, and then, the wound was dressed with saline-soaked Kerlix, followed by dry sterile dressings, more Kerlix wrap, and a 4-inch Derrek bandage. Patient was aroused from general anesthesia and then transferred to the postanesthesia care unit in stable condition, awake and alert. ESTIMATED BLOOD LOSS: 10 mL REPLACEMENTS: Crystalloid. DRAINS: None. SPECIMENS: Non-viable skin, eschar, fat, and fascia to Pathology. I, Tre Aponte, was physically present in the operating room from the time the patient was placed on the operating table until she was transferred to the postanesthesia care unit in my accompaniment. MD LORE Chong/[id number] MTDTaniya
--- NOTE | 2018-03-08 10:42 | PN ---
Progress Note (short form) - Note Progress Note: Anesthesia POD#1 S/P Leg Debridement under GA VSS,no N/V. No Issues. Nancy Talbert MD.
[2018-03-08 11:29] VITALS: BP 111/59; PULSE 68; TEMP 98.2
[2018-03-08] MEDS: LACTATED RINGERS SOLUTION 1,000 ML IV SCH (14:46)
--- NOTE | 2018-03-08 15:17 | DS ---
Physical Exam: SUBJECTIVE:Patient seen and examined at bedside. No complaints. Pt has not been requiring Oxy for pain control. OBJECTIVE: Vital Signs Period Temp Pulse Resp BP Sys/Barragan Pulse Ox Last 24 Hr 97.3 F-98.6 F 59-69 12-20 108-128/48-80 97-100 PHYSICAL EXAM Gen: well-appearing, NAD HEENT: NCAT, PERRL, EOMI Neck: supple no jvd Cardiac: rrr, normal s1s2, no m/r/g Pulm: cta b/l Abd: soft nontender Ext: LLE inflammation continues to improve. LLE with wound dressing cdi LABS Laboratory Results - last 24 hr 03/08/18 03/08/18 06:00 06:00 WBC 8.6 RBC 3.80 Hgb 12.4 Hct 36.6 MCV 96.3 H MCH 32.6 MCHC 33.8 RDW 13.0 Plt Count 234 MPV 7.9 Absolute Neuts (auto) 6.0 Neutrophils % 69.3 Lymphocytes % 20.4 Monocytes % 7.8 Eosinophils % 1.8 Basophils % 0.7 Nucleated RBC % 0 Sodium 141 Potassium 4.2 Chloride 106 Carbon Dioxide 23 Anion Gap 12 BUN 14 Creatinine 0.9 Creat Clearance w eGFR > 60 Random Glucose 76 Calcium 8.1 L Total Bilirubin 0.6 AST 28 ALT 24 Alkaline Phosphatase 53 Total Protein 6.0 L Albumin 3.1 L HOSPITAL COURSE: Date of Admission:03/04/18 Date of Discharge: 03/08/18 Pt is a 77 y/o F with PMH osteoporosis, b/l TKR, R partial hip, R plantar fasciitis who presented to ED after failed outpt augmentin for dog bite. Pt found to have cellulitis at this time. Pt's left lateral leg wsa erythematous, tender, and swollen initially with streaking present in ed. Pt however had no leukocytosis or fever. ID was consulted and started Vanc/Zosyn. Doppler was done to DVT. XRay and CRP were done to r/o abscess. Despite out pt augmentin for 1 week and IV abx for 2 days, erythema and sweeling had not resolved. Surgical consult was called. Surgery performed a debriedment. On admission, pt had an incidentally discovered hyperkalemia, which resolved with one dose of kayexelate. Pt is currently stable for D/C home with VNS. Minutes to complete discharge: 30 Discharge Summary Reason For Visit: CELLULITIS,DOG BITE Current Active Problems Allergy to sulfa drugs (Acute) Cellulitis (Acute) Dog bite of left calf (Acute) Condition: Stable - Instructions Diet, Activity, Other Instructions: Dr. Aponte Discharge Instructions Dear KADIE RASMUSSEN, Post Operative Instructions Physical activity Resume your normal everyday activity as tolerated no heavy lifting or exercise until seen by your surgeon. You may walk unlimited amounts of and climb stairs. You may resume driving the car when you feel safe and comfortable behind the wheel. Wound care Pack wound daily with wet to dry dressing as instructed-wet to dry with normal saline.You may shower but do not submerge the incision. After shower allow area to dry completely before packing. Keep dressing clean and change daily or as needed. Do not apply ointments or lotions to area. Diet There are no dietary restrictions. Eat healthy, high-fiber foods. Drink 6 to 8 glasses of liquid each day. This will assist in keeping your bowels are regular. Pain management You may take Tylenol or acetaminophen or Ibuprofen (for example, Motrin, Advil etc.) Any pain prescription medication ordered should be taken as prescribed for moderate to severe pain. Call Dr. Aponte for any of the following: Severe pain not relieved by medication Fever of 101 or higher Excessive bleeding or drainage on dressing Inability to urinate New or worsening redness/pain Call the office at [phone] for a post operative appointment in 7 - 10 days. You can follow up with the infectious diseases doctor, Dr. Burns. You are being sent home with Augmentin 875mg twice daily for 1 week. Referrals: Tre Aponte MD [Staff Physician] - 1 Week Alyssa Burns MD [Staff Physician] - 1 Week Disposition: VNS/HOME HEALTH CARE - Home Medications Comprehensive Discharge Medication List: Ambulatory Orders Amox-Tr/K Cl [Augmentin - 875Mg Tablet] 875 mg PO BID #14 tablet 03/08/18 Denosumab [Prolia] 60 mg SQ ONCE 03/08/18 Sertraline HCl [Zoloft] 150 mg PO DAILY 03/08/18 Valacyclovir HCl [Valtrex] 500 mg PO DAILY 03/08/18 This patient is new to me today: No Emergency Visit: No Critical Care patient: No - Discharge Referral Referred to [facility] Med P.C.: No
--- NOTE | 2018-03-09 14:40 | PATH ---
Surgical Pathology Report Patient Name: KADIE RASMUSSEN Med. Rec. #: [id number] /Age/Gender: 1940 (Age: 77) / F Account: [id number] Location: [address] [place] [address]/[facility] Taken: 03/07/2018 Received: 03/08/2018 Reported: 03/09/2018 Physicians: MD Anna Esteban, Specimen(s) Received ESCHAR FROM LEFT LOWER EXTREMITY Clinical History Cellulitis, dog bite Final Diagnosis LEG, LEFT, ESCHAR, DEBRIDEMENT: SKIN AND SOFT TISSUE WITH ACUTE AND CHRONIC NECROTIZING INFLAMMATION, HEMORRHAGE, AND ULCERATION. Electronically Signed Cande Jimenez M.D. Gross Description Received in formalin labeled "eschar from left leg," is a 3.0 x 2.0 x 0.4 cm aggregate of strickland-brown, necrotic skin and soft tissue fragments. Surveying Or Spatial Science Technician sections are submitted in one cassette. /03/08/2018 saudi/03/08/2018
== END 2018-03-08 15:53 | disposition home health service (06) | DRG 571 ==
LOC: JER 10:02 → JERBED 15:09 → J6S 03-05 05:32
PROVIDERS: ADMIT Internal Medicine; ATTEND Hospitalist
PROC: 0JBP0ZZ Excision of Left Lower Leg Subcutaneous Tissue and Fascia, Open Approach (ICD-10-PCS; principal; 2018-03-07 13:30)
DX: S81.852A Open bite, left lower leg, initial encounter (principal); L03.116 Cellulitis of left lower limb; W54.0XXA Bitten by dog, initial encounter; Y93.9 Activity, unspecified; Y92.89 Other specified places as the place of occurrence of the external cause; Y99.9 Unspecified external cause status; E87.5 Hyperkalemia; M81.0 Age-related osteoporosis without current pathological fracture
CPT/HCPCS: 36415; 71046-TC-FY; 73590-TC-LT-FY; 80053; 81003; 81015; 83735; 84100; 85025; 85610; 85651; 86140; 87040; 87086; 88304-TC; 93005; 93010; 93971-TC; 94760; 99282-25; G0480; J1644